=== PATIENT | male | born 1985 | race Caucasian/White ===

== ENCOUNTER 2025-01-28 22:30 | Emergency (ER) | payer MEDICAID | END 2025-01-28 22:58 | LOC: JD.ED 22:30 | DX: Z02.89 Encounter for other administrative examinations (principal); F10.129 Alcohol abuse with intoxication, unspecified | CPT/HCPCS: 99284 ==

== ENCOUNTER 2025-02-01 14:51 | Emergency (ER) | payer MEDICAID ==
[2025-02-01 15:46] LABS: BASOPHILS ABSOLUTE AUTO 0.1 K/mm3 (0.0-0.2); EOSINOPHILS PERCENT AUTO 0.3 % (0.0-6.0); HEMATOCRIT 42.8 % (42.0-52.0); HEMOGLOBIN 14.5 gm/dl (14.0-18.0); IMMATURE GRAN ABSOLUTE AUTO 0.02 K/mm3 (0.00-0.05); IMMATURE GRAN PERCENT AUTO 0.3 % (0.0-0.4); LYMPHOCYTES ABSOLUTE AUTO 2.2 K/mm3 (1.0-4.8); LYMPHOCYTES PERCENT AUTO 29.5 % (24.0-44.0); MEAN CORPUSCULAR HEMOGLOBIN 29.8 pg (28.0-32.0); MEAN CORPUSCULAR HGB CONC 33.9 g/dl (32.0-36.0); MEAN CORPUSCULAR VOLUME 87.9 fl (83.0-99.0); MEAN PLATELET VOLUME 9.1 fl (9.4-12.4); MONOCYTES ABSOLUTE AUTO 0.5 K/mm3 (0.0-0.8); MONOCYTES PERCENT AUTO 6.4 % (0.0-8.0); NEUTROPHILS ABSOLUTE AUTO 4.6 K/mm3 (1.8-7.7); NEUTROPHILS PERCENT AUTO 62.5 % (41.0-71.0); PLATELET COUNT,PLT 280 K/mm3 (150-400); RED BLOOD CELL COUNT 4.87 M/mm3 (4.52-5.90); WHITE BLOOD CELL COUNT,WBC 7.35 K/mm3 (3.9-11.3)
[2025-02-01 15:57] LABS: INR 0.96; PROTHROMBIN TIME 10.2 SECONDS (9.7-12.0)
[2025-02-01 16:01] LABS: A/G RATIO 1.4 (1-2); ALANINE AMINOTRANSFERASE,ALT 66 U/L (16-63); ALBUMIN 4.5 g/dl (3.4-5.0); ALKALINE PHOSPHATASE 74 U/L (46-116); ASPARTATE AMNIOTRANSFERASE,AST 78 U/L (15-37); BILIRUBIN TOTAL 1.1 mg/dL (0.2-1.0); BLOOD UREA NITROGEN,BUN 11 mg/dL (7-18); CALCIUM 8.8 mg/dL (8.5-10.1); CARBON DIOXIDE,CO2 22 mEq/L (21-32); CHLORIDE,CL 100 mEq/L (98-107); CREATINE KINASE,CK 862 U/L (39-308); CREATININE 1.1 mg/dL (0.7-1.3); ESTIMATED GFR 89 mL/min (>60); GLUCOSE RANDOM 87 mg/dL (70-99); LIPASE 19 U/L (16-77); MAGNESIUM 2.1 mg/dL (1.8-2.4); PROTEIN TOTAL,TP 7.8 g/dl (6.4-8.2); SODIUM,NA 143 mEq/L (136-145)
[2025-02-01 16:09] LABS: ACETAMINOPHEN 0 ug/mL (10-30)
[2025-02-01] MEDS: Magnesium Sulfate 2 GM/50 mL 2 GM/50 ML BAG IV ONE (16:46)
[2025-02-01] MEDS: Folic Acid 1 MG Tab PO ONE (16:46)
[2025-02-01] MEDS: Multivitamins with Minerals/Folic Acid/Lutein/Zeaxanth Tab PO STA (16:46)
[2025-02-01] MEDS: Sodium Chloride 0.9% 2,000 ML IV SCH (16:47)
[2025-02-01] MEDS: Ondansetron 4 MG/2 ML SDV IVPUSH ONE ×2 (16:47)
[2025-02-01] MEDS: Thiamine 200 MG/2 ML MDV IVPUSH ONE (16:47)
[2025-02-01 19:23] LABS: ETHANOL BLOOD MEDICAL 0.3 gm% (0.00)
[2025-02-01] MEDS: Ibuprofen 600 MG Tab PO ONE (20:14)
[2025-02-01] MEDS: LORazepam 2 MG/ML SDV IVPUSH ONE (21:22)
[2025-02-01 23:59] LABS: APPEARANCE,URINE CLEAR (Clear); BILIRUBIN,URINE NEGATIVE (Negative); COLOR,URINE YELLOW (Yellow); GLUCOSE,URINE NEGATIVE (Negative); KETONES,URINE 2+ (Negative); LEUKOCYTE ESTERASE,URINE NEGATIVE (Negative); NITRITE,URINE NEGATIVE (Negative); OCCULT BLOOD,URINE NEGATIVE (Negative); PROTEIN,URINE 2+ (Negative)
[2025-02-02 00:08] LABS: BARBITURATE SCREEN,URINE NEGATIVE (CUTOFF=200); BENZODIAZEPINES SCREEN,URINE PRESUMPTIVE POSITIVE (CUTOFF=150); BUPRENORPHINE SCREEN,URINE NEGATIVE (CUTOFF=10); METHADONE SCREEN, URINE NEGATIVE (CUT0FF=200); METHAMPHETAMINES SCREEN, URINE NEGATIVE (CUTOFF=500); OXYCODONE SCREEN,URINE NEGATIVE (CUT0FF=100); THC SCREEN,URINE 20 NG/ML NEGATIVE (CUTOFF=50)
[2025-02-02 00:09] LABS: AMPHETAMINES SCREEN, URINE NEGATIVE (CUTOFF=500)
[2025-02-02 00:15] LABS: BACTERIA,URINE FEW /hpf (FEW); EPITHELIAL CELLS,URINE 0-5 /hpf (0-5); MUCUS,URINE NOT SEEN /hpf (FEW); RBC,URINE 0-5 /hpf (0-5); WBC,URINE 0-5 /hpf (0-5)
== END 2025-02-02 01:42 | disposition home or self-care (01) ==
LOC: JD.ED 14:51
DX: F10.129 Alcohol abuse with intoxication, unspecified (principal); Y90.9 Presence of alcohol in blood, level not specified
CPT/HCPCS: 36415; 80053; 80143; 80179; 80306; 80307; 81001; 82550; 83690; 83735; 85025; 85610; 93005; 96365; 96366; 96375; 99284; A9270; J2060; J2405; J3411; J3475; J7030

== ENCOUNTER 2025-02-04 19:43 | Emergency (ER) | payer MEDICAID ==
[2025-02-04] MEDS ORDERED: Sodium Chloride 0.9% 10 ML Syringe FLUSH PRN (20:32)
[2025-02-04 20:35] LABS: BASOPHILS ABSOLUTE AUTO 0.0 K/mm3 (0.0-0.2); BASOPHILS PERCENT AUTO 0.8 % (0.0-1.0); EOSINOPHILS ABSOLUTE AUTO 0.1 K/mm3 (0.0-0.4); EOSINOPHILS PERCENT AUTO 1.2 % (0.0-6.0); IMMATURE GRAN ABSOLUTE AUTO 0.01 K/mm3 (0.00-0.05); IMMATURE GRAN PERCENT AUTO 0.2 % (0.0-0.4); LYMPHOCYTES ABSOLUTE AUTO 2.0 K/mm3 (1.0-4.8); LYMPHOCYTES PERCENT AUTO 39.6 % (24.0-44.0); MEAN PLATELET VOLUME 9.5 fl (9.4-12.4); MONOCYTES ABSOLUTE AUTO 0.6 K/mm3 (0.0-0.8); MONOCYTES PERCENT AUTO 11.6 % (0.0-8.0); NEUTROPHILS ABSOLUTE AUTO 2.4 K/mm3 (1.8-7.7); NEUTROPHILS PERCENT AUTO 46.6 % (41.0-71.0); NRBC ABSOLUTE 0.00 (0.00-0.02); NRBC PERCENT 0.0 % (0.0-0.2); PLATELET COUNT,PLT 209 K/mm3 (150-400); RED BLOOD CELL COUNT 4.69 M/mm3 (4.52-5.90); WHITE BLOOD CELL COUNT,WBC 5.07 K/mm3 (3.9-11.3)
[2025-02-04 21:07] LABS: A/G RATIO 1.3 (1-2); ALANINE AMINOTRANSFERASE,ALT 99.0 U/L (16-63); ASPARTATE AMNIOTRANSFERASE,AST 105.0 U/L (15-37); BILIRUBIN TOTAL 0.6 mg/dL (0.2-1.0); BLOOD UREA NITROGEN,BUN 3.0 mg/dL (7-18); CARBON DIOXIDE,CO2 25.0 mEq/L (21-32); CHLORIDE,CL 103.0 mEq/L (98-107); CREATININE 1.1 mg/dL (0.7-1.3); EST CRCL DRUG DOSING (CG) 94.94 mL/min; ESTIMATED GFR 89.0 mL/min (>60); ETHANOL BLOOD MEDICAL 0.28 gm% (0.00); GLUCOSE RANDOM 96.0 mg/dL (70-99); POTASSIUM,K 3.5 mEq/L (3.5-5.1); PROTEIN TOTAL,TP 7.2 g/dl (6.4-8.2); SODIUM,NA 142.0 mEq/L (136-145); TSH 1.321 uIU/mL (0.358-3.74)
[2025-02-04 23:38] LABS: BUPRENORPHINE SCREEN,URINE NEGATIVE (CUTOFF=10); METHADONE SCREEN, URINE NEGATIVE (CUT0FF=200); METHAMPHETAMINES SCREEN, URINE NEGATIVE (CUTOFF=500); OXYCODONE SCREEN,URINE NEGATIVE (CUT0FF=100); THC SCREEN,URINE 20 NG/ML NEGATIVE (CUTOFF=50)
[2025-02-04 23:40] LABS: AMPHETAMINES SCREEN, URINE NEGATIVE (CUTOFF=500)
== END 2025-02-05 01:32 | disposition other institution (70) ==
LOC: JD.ED 19:43
DX: F10.10 Alcohol abuse, uncomplicated (principal); F17.210 Nicotine dependence, cigarettes, uncomplicated; Y90.9 Presence of alcohol in blood, level not specified
CPT/HCPCS: 36415; 80053; 80143; 80179; 80306; 80307; 84443; 85025; 93005; 96360; 99285; J7030

== ENCOUNTER 2025-02-11 02:53 | Emergency (ER) | payer MEDICAID ==
[2025-02-11] MEDS ORDERED: Sodium Chloride 0.9% 10 ML Syringe FLUSH PRN (04:03)
[2025-02-11 04:21] LABS: BASOPHILS ABSOLUTE AUTO 0.0 K/mm3 (0.0-0.2); BASOPHILS PERCENT AUTO 0.5 % (0.0-1.0); EOSINOPHILS ABSOLUTE AUTO 0.1 K/mm3 (0.0-0.4); EOSINOPHILS PERCENT AUTO 1.1 % (0.0-6.0); IMMATURE GRAN ABSOLUTE AUTO 0.02 K/mm3 (0.00-0.05); IMMATURE GRAN PERCENT AUTO 0.4 % (0.0-0.4); LYMPHOCYTES ABSOLUTE AUTO 2.0 K/mm3 (1.0-4.8); LYMPHOCYTES PERCENT AUTO 34.9 % (24.0-44.0); MEAN PLATELET VOLUME 8.9 fl (9.4-12.4); MONOCYTES ABSOLUTE AUTO 0.7 K/mm3 (0.0-0.8); MONOCYTES PERCENT AUTO 12.8 % (0.0-8.0); NEUTROPHILS ABSOLUTE AUTO 2.9 K/mm3 (1.8-7.7); NEUTROPHILS PERCENT AUTO 50.3 % (41.0-71.0); NRBC ABSOLUTE 0.00 (0.00-0.02); NRBC PERCENT 0.0 % (0.0-0.2); PLATELET COUNT,PLT 225 K/mm3 (150-400); RED BLOOD CELL COUNT 4.74 M/mm3 (4.52-5.90); WHITE BLOOD CELL COUNT,WBC 5.70 K/mm3 (3.9-11.3)
[2025-02-11 04:47] LABS: A/G RATIO 1.1 (1-2); ALANINE AMINOTRANSFERASE,ALT 85.0 U/L (16-63); ASPARTATE AMNIOTRANSFERASE,AST 50.0 U/L (15-37); BILIRUBIN TOTAL 0.6 mg/dL (0.2-1.0); BLOOD UREA NITROGEN,BUN 12.0 mg/dL (7-18); CARBON DIOXIDE,CO2 27.0 mEq/L (21-32); CHLORIDE,CL 99.0 mEq/L (98-107); CREATININE 0.9 mg/dL (0.7-1.3); EST CRCL DRUG DOSING (CG) 116.03 mL/min; ESTIMATED GFR 113.0 mL/min (>60); ETHANOL BLOOD MEDICAL 0.41 gm% (0.00); GLUCOSE RANDOM 84.0 mg/dL (70-99); POTASSIUM,K 3.9 mEq/L (3.5-5.1); PROTEIN TOTAL,TP 7.4 g/dl (6.4-8.2); SODIUM,NA 140.0 mEq/L (136-145)
[2025-02-11 04:49] LABS: BUPRENORPHINE SCREEN,URINE NEGATIVE (CUTOFF=10); METHADONE SCREEN, URINE NEGATIVE (CUT0FF=200); METHAMPHETAMINES SCREEN, URINE NEGATIVE (CUTOFF=500); OXYCODONE SCREEN,URINE NEGATIVE (CUT0FF=100); THC SCREEN,URINE 20 NG/ML NEGATIVE (CUTOFF=50)
[2025-02-11 04:50] LABS: AMPHETAMINES SCREEN, URINE NEGATIVE (CUTOFF=500)
[2025-02-11] MEDS ORDERED: Multivitamins with Minerals/Folic Acid/Lutein/Zeaxanth Tab PO STA (09:36)
[2025-02-11] MEDS ORDERED: Thiamine 200 MG/2 ML MDV IVPUSH ONE (09:36)
== END 2025-02-11 12:01 | disposition left against medical advice (07) ==
LOC: JD.ED 02:53
DX: F10.10 Alcohol abuse, uncomplicated (principal); F10.129 Alcohol abuse with intoxication, unspecified
CPT/HCPCS: 36415; 80053; 80306; 80307; 83735; 85025; 96360; 99284; J7030

== ENCOUNTER 2025-02-12 12:52 | Emergency (ER) | payer MEDICAID ==
[2025-02-12] MEDS ORDERED: Folic Acid 50 MG/10 ML MDV IV STA (13:06)
[2025-02-12 13:13] LABS: BASOPHILS ABSOLUTE AUTO 0.0 K/mm3 (0.0-0.2); BASOPHILS PERCENT AUTO 1.0 % (0.0-1.0); EOSINOPHILS ABSOLUTE AUTO 0.1 K/mm3 (0.0-0.4); EOSINOPHILS PERCENT AUTO 1.5 % (0.0-6.0); IMMATURE GRAN ABSOLUTE AUTO 0.01 K/mm3 (0.00-0.05); IMMATURE GRAN PERCENT AUTO 0.2 % (0.0-0.4); LYMPHOCYTES ABSOLUTE AUTO 1.4 K/mm3 (1.0-4.8); LYMPHOCYTES PERCENT AUTO 34.1 % (24.0-44.0); MEAN PLATELET VOLUME 8.9 fl (9.4-12.4); MONOCYTES ABSOLUTE AUTO 0.4 K/mm3 (0.0-0.8); MONOCYTES PERCENT AUTO 10.0 % (0.0-8.0); NEUTROPHILS ABSOLUTE AUTO 2.1 K/mm3 (1.8-7.7); NEUTROPHILS PERCENT AUTO 53.2 % (41.0-71.0); NRBC ABSOLUTE 0.00 (0.00-0.02); NRBC PERCENT 0.0 % (0.0-0.2); PLATELET COUNT,PLT 217 K/mm3 (150-400); RED BLOOD CELL COUNT 4.66 M/mm3 (4.52-5.90); WHITE BLOOD CELL COUNT,WBC 4.02 K/mm3 (3.9-11.3)
[2025-02-12 13:35] LABS: A/G RATIO 1.1 (1-2); ALANINE AMINOTRANSFERASE,ALT 112.0 U/L (16-63); ASPARTATE AMNIOTRANSFERASE,AST 114.0 U/L (15-37); BILIRUBIN TOTAL 0.7 mg/dL (0.2-1.0); BLOOD UREA NITROGEN,BUN 8.0 mg/dL (7-18); CARBON DIOXIDE,CO2 25.0 mEq/L (21-32); CHLORIDE,CL 103.0 mEq/L (98-107); CREATINE KINASE,CK 857.0 U/L (39-308); CREATININE 0.8 mg/dL (0.7-1.3); EST CRCL DRUG DOSING (CG) 130.54 mL/min; ESTIMATED GFR 117.0 mL/min (>60); ETHANOL BLOOD MEDICAL 0.44 gm% (0.00); GLUCOSE RANDOM 86.0 mg/dL (70-99); INR < 0.93; POTASSIUM,K 3.9 mEq/L (3.5-5.1); PROTEIN TOTAL,TP 7.2 g/dl (6.4-8.2); SODIUM,NA 142.0 mEq/L (136-145); TROPONIN I HIGH SENSITIVITY 5.0 pg/mL (<=76)
[2025-02-12] MEDS: Folic Acid 50 MG/10 ML MDV IV STA (13:56)
[2025-02-12] MEDS: Thiamine 200 MG/2 ML MDV IVPUSH ONE (13:59)
[2025-02-12 14:01] LABS: APPEARANCE,URINE CLEAR (Clear); GLUCOSE,URINE NEGATIVE (Negative); OCCULT BLOOD,URINE NEGATIVE (Negative)
[2025-02-12] MEDS: Ondansetron 4 MG/2 ML SDV IVPUSH ONE (14:02)
[2025-02-12 14:27] LABS: SQUAMOUS EPITHELIAL CELLS,UR 0-5 /hpf (0-5)
[2025-02-12 14:31] LABS: BUPRENORPHINE SCREEN,URINE NEGATIVE (CUTOFF=10); METHADONE SCREEN, URINE NEGATIVE (CUT0FF=200); METHAMPHETAMINES SCREEN, URINE NEGATIVE (CUTOFF=500); OXYCODONE SCREEN,URINE NEGATIVE (CUT0FF=100); THC SCREEN,URINE 20 NG/ML NEGATIVE (CUTOFF=50)
[2025-02-12 14:32] LABS: AMPHETAMINES SCREEN, URINE NEGATIVE (CUTOFF=500)
== END 2025-02-12 18:26 | disposition home or self-care (01) ==
LOC: JD.ED 12:52
DX: F10.129 Alcohol abuse with intoxication, unspecified (principal); R00-R99 Symptoms, signs and abnormal clinical and laboratory findings, not elsewhere classified
CPT/HCPCS: 36415; 70450; 80053; 80306; 80307; 81001; 82550; 82947; 83690; 83735; 84484; 85025; 85610; 93005; 96361; 96365; 96375; 99285; J2405; J3411; J3475; J7030; J3490

== ENCOUNTER 2025-02-14 14:10 | Emergency (ER) | payer MEDICAID ==
[2025-02-14] MEDS ORDERED: Folic Acid 50 MG/10 ML MDV IV STA (14:47)
[2025-02-14 14:50] LABS: BASOPHILS ABSOLUTE AUTO 0.1 K/mm3 (0.0-0.2); BASOPHILS PERCENT AUTO 1.2 % (0.0-1.0); EOSINOPHILS ABSOLUTE AUTO 0.0 K/mm3 (0.0-0.4); EOSINOPHILS PERCENT AUTO 0.6 % (0.0-6.0); IMMATURE GRAN ABSOLUTE AUTO 0.01 K/mm3 (0.00-0.05); IMMATURE GRAN PERCENT AUTO 0.2 % (0.0-0.4); LYMPHOCYTES ABSOLUTE AUTO 1.4 K/mm3 (1.0-4.8); LYMPHOCYTES PERCENT AUTO 27.9 % (24.0-44.0); MEAN PLATELET VOLUME 8.8 fl (9.4-12.4); MONOCYTES ABSOLUTE AUTO 0.5 K/mm3 (0.0-0.8); MONOCYTES PERCENT AUTO 9.6 % (0.0-8.0); NEUTROPHILS ABSOLUTE AUTO 3.0 K/mm3 (1.8-7.7); NEUTROPHILS PERCENT AUTO 60.5 % (41.0-71.0); NRBC ABSOLUTE 0.00 (0.00-0.02); NRBC PERCENT 0.0 % (0.0-0.2); PLATELET COUNT,PLT 261 K/mm3 (150-400); RED BLOOD CELL COUNT 5.10 M/mm3 (4.52-5.90); WHITE BLOOD CELL COUNT,WBC 4.91 K/mm3 (3.9-11.3)
[2025-02-14] MEDS: Ondansetron 4 MG/2 ML SDV IVPUSH ONE ×2 (14:53→16:10)
[2025-02-14] MEDS: Thiamine 200 MG/2 ML MDV IVPUSH ONE (14:56)
[2025-02-14] MEDS: Folic Acid 50 MG/10 ML MDV IV STA (15:02)
[2025-02-14 15:24] LABS: A/G RATIO 1.2 (1-2); ALANINE AMINOTRANSFERASE,ALT 123.0 U/L (16-63); ASPARTATE AMNIOTRANSFERASE,AST 123.0 U/L (15-37); BILIRUBIN TOTAL 0.6 mg/dL (0.2-1.0); BLOOD UREA NITROGEN,BUN 12.0 mg/dL (7-18); CARBON DIOXIDE,CO2 23.0 mEq/L (21-32); CHLORIDE,CL 100.0 mEq/L (98-107); CREATININE 1.1 mg/dL (0.7-1.3); EST CRCL DRUG DOSING (CG) 94.94 mL/min; ESTIMATED GFR 89.0 mL/min (>60); ETHANOL BLOOD MEDICAL 0.49 gm% (0.00); GLUCOSE RANDOM 206.0 mg/dL (70-99); POTASSIUM,K 4.0 mEq/L (3.5-5.1); PROTEIN TOTAL,TP 7.4 g/dl (6.4-8.2); SODIUM,NA 140.0 mEq/L (136-145); TSH 0.753 uIU/mL (0.358-3.74)
[2025-02-14 17:40] LABS: BUPRENORPHINE SCREEN,URINE NEGATIVE (CUTOFF=10); METHADONE SCREEN, URINE NEGATIVE (CUT0FF=200); METHAMPHETAMINES SCREEN, URINE NEGATIVE (CUTOFF=500); OXYCODONE SCREEN,URINE NEGATIVE (CUT0FF=100); THC SCREEN,URINE 20 NG/ML NEGATIVE (CUTOFF=50)
[2025-02-14 17:47] LABS: AMPHETAMINES SCREEN, URINE NEGATIVE (CUTOFF=500)
[2025-02-15] MEDS: LORazepam 2 MG/ML SDV IVPUSH ONE (00:16)
[2025-02-15] MEDS: LORazepam 2 MG/ML SDV ONE (00:57)
== END 2025-02-15 01:56 | disposition home or self-care (01) ==
LOC: JD.ED 14:10
DX: F10.10 Alcohol abuse, uncomplicated (principal); F17.210 Nicotine dependence, cigarettes, uncomplicated; Y90.9 Presence of alcohol in blood, level not specified; Z79.899 Other long term (current) drug therapy
CPT/HCPCS: 36415; 80053; 80143; 80179; 80306; 80307; 83690; 83735; 84443; 85025; 93005; 96361; 96374; 96375; 99284; A9270; J2060; J2405; J3411; J7030; 93010; J3490